=== PATIENT | male | born 1975 | race Hispanic/Latino ===

== ENCOUNTER 2024-06-29 10:22 | Emergency (ER) | payer OTHER ==
[~2024-06-29] VITALS: Ht 170.2 cm; Wt 97.5 kg
[2024-06-29 10:57] VITALS: TEMP 97.8
[2024-06-29] MEDS: ORPHENADRINE CITRATE 30 MG/ML VIAL IM ONE (12:07)
[2024-06-29] MEDS: HYDROCODONE/APAP 5MG-325MG TAB PO ONE (12:08)
[2024-06-29] MEDS: KETOROLAC TROMETHAMINE 30 MG/ML VIAL IM STA (12:08)
[2024-06-29 13:19] VITALS: PULSE 72; RESP 16
[2024-06-29] MEDS ORDERED: METHOCARBAMOL750 MG PO (14:14)
[2024-06-29 14:31] VITALS: BP 120/86; PULSE 80; RESP 16; TEMP 98.7; O2SAT 99
== END 2024-06-29 14:32 | disposition home or self-care (01) ==
LOC: ER 11:48
DX: M54.32 Sciatica, left side (principal); M79.18 Myalgia, other site; I10 Essential (primary) hypertension; E11.9 Type 2 diabetes mellitus without complications
CPT/HCPCS: 93971; 99283; J1885; J2360

== ENCOUNTER 2024-12-10 11:19 | Emergency (ER) | payer BC, OTHER ==
[~2024-12-10] VITALS: Ht 167.6 cm; Wt 101.8 kg
[~2024-12-10 11:19] MED LIST: METHOCARBAMOL750 MG PO
[2024-12-10 11:30] VITALS: PULSE 82; RESP 18; TEMP 97.9; O2SAT 95
[2024-12-10] MEDS ORDERED: IBUPROFEN600 MG PO (12:19)
[2024-12-10] MEDS ORDERED: ACETAMINOP160 MG/54 PO (12:19)
[2024-12-10] MEDS: IBUPROFEN 200 MG TAB PO ONE (12:21)
[2024-12-10] MEDS: ACETAMINOPHEN 325 MG TAB PO ONE (12:21)
== END 2024-12-10 12:45 | disposition home or self-care (01) ==
LOC: FSED 11:25
DX: S43.491A Other sprain of right shoulder joint, initial encounter (principal); W11.XXXA Fall on and from ladder, initial encounter; Y99.0 Civilian activity done for income or pay; I10 Essential (primary) hypertension; E11.9 Type 2 diabetes mellitus without complications
CPT/HCPCS: 99284